=== PATIENT | female | born 1985 | race Caucasian/White ===

== ENCOUNTER 2020-09-21 13:03 | Outpatient (CLI) | payer BC, SELFPAY ==
--- NOTE | 2020-09-21 13:10 | USCV_ITS ---
Shira Parry Age: 34 Gender: F : 1985 Exam Date: 09/21/2020 13:36 Ordering Phys: Ronal Robledo MD ([email or web address]) Technologist: Xavier Zamora Exam Location: [facility] – [place] Indication: VSD BP: 177 / 88 HR: 66 Rhythm: Sinus Technical Quality: Technically difficult study MEASUREMENTS (Male / Female) Normal Values 2D ECHO LV Diastolic Diameter PLAX 4.2 cm 4.2 - 5.9 / 3.9 - 5.3 cm LV Systolic Diameter PLAX 2.8 cm IVS Diastolic Thickness 1.2 cm 0.6 - 1.0 / 0.6 - 0.9 cm IVS Systolic Thickness 1.4 cm LVPW Diastolic Thickness 0.9 cm 0.6 - 1.0 / 0.6 - 0.9 cm LVPW Systolic Thickness 1.3 cm LVOT Diameter 2.0 cm LV Ejection Fraction 2D Teich 61.7 % LV Ejection Fraction MOD 2C 53.5 % LV Ejection Fraction 2C AL 53.2 % LA Diameter 3.2 cm LA Width 4.0 cm LA Height 4.1 cm RA Width 3.7 cm RA Height 4.1 cm Aorta at Sinotubular Diameter 2.2 cm M-MODE LV Diastolic Diameter MM 4.0 cm 4.2 - 5.9 / 3.9 - 5.3 cm LV Systolic Diameter MM 2.2 cm LV Ejection Fraction MM Teich 77.6 % IVS Diastolic Thickness MM 1.1 cm 0.6 - 1.0 / 0.6 - 0.9 cm IVS Systolic Thickness MM 1.6 cm LVPW Diastolic Thickness MM 1.2 cm 0.6 - 1.0 / 0.6 - 0.9 cm LVPW Systolic Thickness MM 1.6 cm RV Diastolic Diameter MM 2.0 cm Aortic Annulus Diameter 2.5 cm LA Ao Ratio MM 1.5 MV E Point Septal Separation 0.9 cm DOPPLER AV Peak Velocity 173.0 cm/s LVOT Peak Velocity 96.0 cm/s AV Area Cont Eq vti 2.4 cm squared AV Area Cont Eq pk 1.8 cm squared MV Area PHT 3.1 cm squared Mitral E to A Ratio 1.1 MV E' Velocity 77.5 cm/s Mitral E to MV E' Ratio 10.8 Mitral E to LV E' Lateral Ratio 10.4 Mitral E to LV E' Septal Ratio 11.2 TR Peak Velocity 146.0 cm/s TR Peak Gradient 8.5 mmHg TV Peak E Velocity 73.0 cm/s Right Atrial Pressure 3.0 mmHg Pulmonary Artery Systolic Pressu 11.5 mmHg PV Peak Velocity 100.0 cm/s FINDINGS Left Ventricle Normal left ventricular size and systolic function, EF 55 %. No gross wall motion abnormalities Right Ventricle Possibly of normal size and ejection fraction Right Atrium The right atrium is normal in size. Left Atrium The left atrium is normal in size. Mitral Valve No gross abnormalities noted Aortic Valve No gross abnormalities noted Tricuspid Valve No gross abnormalities noted Pulmonic Valve Pulmonic valve not well visualized. Pericardium Normal pericardium without effusion. Aorta Normal ascending aorta dimension. CONCLUSIONS Normal left ventricular size and systolic function, EF 55 %. No gross wall motion abnormalities. Possibly normal cardiac chamber sizes. No significant stenotic or regurgitant lesions There is no pericardial effusion. Technically difficult study because of the poor ultrasonic window. Dr Ronal Robledo MD FACC (Electronically Signed) Final Date: 21 September 2020 18:26 S
== END 2020-09-21 13:04 | disposition home or self-care (01) ==
LOC: RAD 13:04
PROVIDERS: Visit Provider Internal Medicine Cardiovascular Disease
DX: Q21.0 Ventricular septal defect (principal)
CPT/HCPCS: 93306

== ENCOUNTER → 2020-10-05 16:08 | Outpatient (BNVA) | payer BC, SELFPAY | PROVIDERS: Visit Provider Internal Medicine Cardiovascular Disease | DX: Z20.822 Contact with and (suspected) exposure to COVID-19 (principal) | CPT/HCPCS: 87635 ==

== ENCOUNTER 2020-10-12 06:27 | Day surgery (SDC) | payer BC, SELFPAY ==
[2020-10-11 14:53] VITALS: BMI 36.6
[2020-10-12 06:46] VITALS: BP 160/85; PULSE 77; RESP 18; TEMP 36.3; O2SAT 97
[2020-10-12] MEDS: sodium chloride 0.9% 1,000 ML 30 ML IV (06:59)
[2020-10-12 07:04] LABS: OR HCG Qualitative Urine Negative (Negative)
--- NOTE | 2020-10-12 07:23 | PM.HP ---
Providers/Chief Complaint Admitting Physician: ALYSE Robledo MD Chief Complaint: Heart murmer History of Present Illness Shira Parry is a 34 year old female with a history of hypertension ventricular septal defect, was found to have a significant murmur in the left sternal border. She had a transthoracic echocardiogram which was a suboptimal quality. No significant stenotic or regurgitant lesions were noted. To better evaluate the heart murmur and the cardiac structures, a transesophageal echocardiogram was recommended. She has a history of a near syncopal episode. No significant arrhythmias were noted. Review of Systems Narrative: CONSTITUTIONAL: No fever or chills. EYES: No blurring of vision or other visual disturbances lately. ENT: No hoarseness of voice, auditory disturbances or sore throat. CARDIOVASCULAR: As mentioned above. RESPIRATORY: No significant cough. GASTROINTESTINAL: No hematemesis or melena. GENITOURINARY: No dysuria or hematuria. INTEGUMENTARY: No skin rashes or history of skin cancer. NEURO: No transient ischemic attacks or amaurosis. PSYCHIATRIC: No history of psychosis or major depression. HEMATOLOGIC: No bleeding disorders or significant anemia. ENDOCRINE: No history of polyuria or polydipsia. MUSCULOSKELETAL: No recent joint pain or swelling. ALLERGY/IMMUNOLOGY: As mentioned above. Medications/Allergies Home Medications Medication Instructions Recorded Confirmed Last Taken Type chlorthalidone 25 mg tablet 25 mg PO QDAY 90 Days #90 tab 07/12/20 10/11/20 10/11/20 Rx potassium chloride 10 mEq 10 meq PO DAILY 90 Days #90 tab 07/12/20 10/11/20 10/11/20 Rx tablet,extended release(part/cryst) Allergies Allergy/AdvReac Type Severity Reaction Status Date / Time codeine Allergy vomitting Verified 10/11/20 15:00 PFSH Acute PFSH: Medical History Elevated blood pressure reading Obesity (BMI 35.0-39.9 without comorbidity) VSD (ventricular septal defect) Patient had surgery for the ventricular septal defect at age of 28 days and then 18 months Surgical History Hx of cholecystectomy Family History Father Hypertension CAD (coronary artery disease) Cancer Mother Hypertension Diabetes Grandmother Hypertension Grandfather Hypertension Social History Smoking and tobacco status: former smoker Alcohol intake: current Alcohol intake frequency: holidays/special occasions only Female Reproductive History: Date of last menstrual period: 10/01/20 Vitals/I&O/Wt Last Vital Signs Temp 97.3 F L 10/12/20 06:46 Pulse 77 10/12/20 06:46 Resp 18 10/12/20 06:46 BP 160/85 10/12/20 06:46 Pulse Ox 97 10/12/20 06:46 Weight last 48 hrs Weight 220 lb Physical Exam Narrative: EXAM NARRATIVE: GENERAL: The patient is alert and oriented times three. Not in any acute distress. HEENT: No significant pallor, icterus or lymphadenopathy.Oral cavity: There are no mucous membrane lesions. NECK: Trachea appears to be central. No masses noted. No JVD or thyromegaly appreciated. RESPIRATORY: Chest is symmetrical. No intercostals muscle retraction or any accessory muscle activation. There is no chest wall tenderness. Breath sounds are heard bilaterally. No rales or rhonchi heard. No evidence of any consolidation. BREASTS: Deferred. HEART: The heart sounds are normal. No S3 or S4. Systolic murmur grade 3/6 the left sternal border. No diastolic murmurs. No pericardial rub ABDOMEN: No vessel pulsations or distention. No tenderness. No organomegaly appreciated. Bowel sounds are normally heard. : Deferred. RECTAL: Deferred. LYMPHATIC: No lymphadenopathy noted in the neck or groin. EXTREMITIES: No edema or cyanosis. No clubbing. Peripheral pulses are palpated in fairly good volume and amplitude MUSCULOSKELETAL: No acute joint deformities or swelling SKIN: There are no significant rashes or ecchymosis NEUROPSYCHIATRIC: The patient is alert and oriented x3. Appears to be in a good mood. No tremors or rigidity noted. A&P Assessment and plan (1) Heart murmur: For further evaluation of the heart murmur and the cardiac structures, a transesophageal echocardiogram was recommended. This was discussed with the patient. The risk of aspiration, bleeding, soft tissue injury, perforation of the stomach/esophagus and other concomitant complications were explained to the patient in detail. The patient understood this well and consented to proceed Status: Acute (2) Obesity (BMI 35.0-39.9 without comorbidity): Status: Acute (3) Elevated blood pressure reading: Since the patient blood pressure seems to be staying in the normal range at home, I may hold off any medication changes at this time. She seems to be somewhat nervous about the test which might be causing the blood pressure elevation. Status: Acute (4) VSD (ventricular septal defect): She had surgery as a baby of 29-year-old and then at 18 months. Apparently the patient was told at that time that she will always have a heart murmur since they could not close the defect completely? Status: Acute Attestations Medical Necessity Statement*: Patient be discharged home after the procedure Coding Level of Care Code Acute Degreasing Solution Mixer for Annel Jaiden Diagnoses Heart murmur R01.1 Obesity (BMI 35.0-39.9 without comorbidity) E66.9 Elevated blood pressure reading R03.0 VSD (ventricular septal defect) Q21.0
--- NOTE | 2020-10-12 07:23 | ANES.PREANE2 ---
Pre-Anesthetic Assessment Pre-Anesthetic Assessment: Height/Weight: Height 1.65 m Weight 99.79 kg Temp Pulse Resp BP Pulse Ox 97.3 F L 77 18 160/85 97 10/12/20 06:46 10/12/20 06:46 10/12/20 06:46 10/12/20 06:46 10/12/20 06:46 Proposed Procedure: Operation Date: 10/12/20 07:30 Proposed Procedures p ROWAN(Not Applicable) - Ronal Robledo MD Was Beta Imtiaz taken within 24 hours: N/A Was Clonidine taken within 24 hours: N/A Last intake: Intake Last Liquid Date 10/11/20 Last Liquid Time 21:00 Last Solid Date 10/11/20 Last Solid Time 21:00 Social: Social History: No alcohol and No tobacco Exam: Pre-Anes Outpt Exam: alert, oriented x 3, clear to auscultation bilaterally and regular rate & rhythm Airway: Submandibular: WNL Cervical ROM: WNL MP: 2 Dentition: Full CV/HEM: CV/HEM: HTN and Murmur Comments: VSD Metabolic: Metabolic: Morbid obesity Anesthetic Plan: ASA status: 2 Anesthesia: MAC Risk of > 500 ml blood loss (7ml/kg in children): No Meds/Allergies Current Medications: Current Medications Generic Name Dose Route Start Last Admin Trade Name Freq PRN Reason Stop Dose Admin Sodium Chloride 1,000 mls @ 30 ml s/hr 10/12/20 06:45 10/12/20 06:59 Sodium Chloride 0.9% IV 10/13/20 06:44 30 mls/hr .Q24H ELIZABETH Administration PFSH Anesthesia PFSH: Medical History Elevated blood pressure reading Obesity (BMI 35.0-39.9 without comorbidity) VSD (ventricular septal defect) Patient had surgery for the ventricular septal defect at age of 28 days and then 18 months Surgical History Hx of cholecystectomy Family History Father Hypertension CAD (coronary artery disease) Cancer Mother Hypertension Diabetes Grandmother Hypertension Grandfather Hypertension Social History Smoking and tobacco status: former smoker Alcohol intake: current Alcohol intake frequency: holidays/special occasions only Female Reproductive History: Date of last menstrual period: 10/01/20 Data Anesthesia Other Labs: Laboratory Results - last 48 hr 10/12/20 06:44 Urine HCG, Qual Negative Cardiac Studies: No Data to Display
--- NOTE | 2020-10-12 07:27 | P.HPUD_ITS ---
Surgery/Procedure H&P Update DATE OF PROCEDURE: October 12, 2020 DATE H&P PERFORMED: 10/12/20 H&P UPDATE INFORMATION: I have reviewed H&P completed within last 30 days, I have examined patient prior to procedure, Changes to prior documentation as noted here and H&P is in [facility] [place] on date indicated PREOP DIAGNOSIS: Striae VSD, heart murmur PLANNED PROCEDURE: Operation Date: 10/12/20 07:30 Proposed Procedures p ROWAN(Not Applicable) - Ronal Robledo MD
--- NOTE | 2020-10-12 08:01 | USCV_ITS ---
Shira Parry Age: 34 Gender: F : 1985 Exam Date: 10/12/2020 08:05 Ordering Phys: Ronal Robledo MD ([email or web address]) Technologist: Xavier Zamora [place] [facility] [place]ication: VSD REPAIR BP: / HR: Rhythm: Sinus Technical Quality: Good MEASUREMENTS (Male / Female) Normal Values 2D ECHO LVOT Diameter 2.0 cm DOPPLER LVOT Peak Velocity 103.0 cm/s Medications Patient given IV sedation by anesthesia service, for details please refer to the anesthesia report. Complications None Proc. Components The ROWAN probe was passed into the posterior pharynx , mid- esophagus, distal esophagus, and gastric fundus. ROWAN was performed at multiple levels. The patient tolerated the procedure well and there were no complications. FINDINGS Left Ventricle Normal LV size and ejection fraction. And deep indentation was noted near to the basal interventricular septum. No evidence of ASD by color-flow Doppler examination or saline contrast injection Right Ventricle The right ventricle is normal in size and function. Right Atrium The right atrium is normal in size. Left Atrium The left atrium is normal in size. LA Appendage Normal contractility. IA Septum Intact with no evidence of any ASD or patent foramen ovale Mitral Valve Trace mitral valve regurgitation. Aortic Valve Mild aortic valve regurgitation. Tricuspid Valve Trace to mild tricuspid valve regurgitation. Pulmonic Valve No gross abnormalities noted Pericardium Normal pericardium without effusion. Aorta Normal ascending aorta dimension. No unstable plaques or any other lesions CONCLUSIONS A deep indentation was noted in the interventricular septum at the basal region, possible site of the VSD repair No evidence of VSD by color flow Doppler examination or by saline contrast injection. Mild aortic regurgitation Trace to mild tricuspid and trace of mitral regurgitation Normal left atrial appendage. No intracardiac masses. Normal chamber sizes with possibly normal LV ejection fraction. Normal aortic dimensions Dr Ronal Robledo MD FAC (Electronically Signed) Final Date: 13 October 2020 19:21 S
[2020-10-12 08:26] VITALS: BP 122/70; PULSE 87; RESP 18; TEMP 36.2; O2SAT 97
[2020-10-12 08:42] VITALS: BP 132/89; PULSE 77; RESP 18; O2SAT 96
--- NOTE | 2020-10-12 08:48 | ANE.PACU2 ---
Inpatient post-anesthesia follow up: Airway intact: Yes Vital signs: Temperature 97.2 F Pulse Rate 77 Respiratory Rate 18 Blood Pressure 132/89 Pulse Oximetry 96 Oxygen Delivery Me thod Room Air Oxygen Flow Rate Fraction of Inspir ed Oxygen Hydration adequate: Yes Nausea and vomiting: No Pain level: 1 Mental status: Baseline
== END 2020-10-12 08:50 | disposition home or self-care (01) ==
PROVIDERS: Anesthesiology; Visit Provider Internal Medicine Cardiovascular Disease
PROC: (CPT 93312; principal; 2020-10-12 07:30)
DX: R01.1 Cardiac murmur, unspecified (principal); E66.01 Morbid (severe) obesity due to excess calories; Z68.36 Body mass index [BMI] 36.0-36.9, adult; R03.0 Elevated blood-pressure reading, without diagnosis of hypertension; Q21.0 Ventricular septal defect; Z82.49 Family history of ischemic heart disease and other diseases of the circulatory system; Z83.3 Family history of diabetes mellitus; Z87.891 Personal history of nicotine dependence
CPT/HCPCS: 81025; 84703; 93312; 93320; 93325; 96360; 96361; J2405; J2704; J3490; J7030

== ENCOUNTER → 2022-01-12 10:59 | Outpatient (BNVA) | payer OTHER, SELFPAY | PROVIDERS: PCP Nurse Practitioner Family; Visit Provider Internal Medicine Cardiovascular Disease | DX: Q21.0 Ventricular septal defect (principal); I35.1 Nonrheumatic aortic (valve) insufficiency; I10 Essential (primary) hypertension; R06.02 Shortness of breath | CPT/HCPCS: 36415; 80048 ==

== ENCOUNTER → 2023-11-04 11:39 | Outpatient (BNVA) | payer OTHER, SELFPAY | PROVIDERS: PCP Nurse Practitioner Family; Visit Provider Registered Nurse Neonatal Intensive Care | DX: J02.9 Acute pharyngitis, unspecified (principal) | CPT/HCPCS: 87880 ==

== ENCOUNTER → 2023-11-15 10:33 | Outpatient (BNVA) | payer OTHER, BC, MEDICAID, SELFPAY | PROVIDERS: PCP Nurse Practitioner Family; Visit Provider Internal Medicine Cardiovascular Disease | DX: Q21.0 Ventricular septal defect (principal); I35.1 Nonrheumatic aortic (valve) insufficiency; R07.9 Chest pain, unspecified; R00.1 Bradycardia, unspecified; I10 Essential (primary) hypertension; E87.6 Hypokalemia; R07.89 Other chest pain | CPT/HCPCS: 93005 ==

== ENCOUNTER → 2024-11-13 10:18 | Outpatient (BNVA) | payer OTHER, SELFPAY | PROVIDERS: PCP Nurse Practitioner Family; Visit Provider Internal Medicine Cardiovascular Disease | DX: R01.1 Cardiac murmur, unspecified (principal); Q21.0 Ventricular septal defect; I35.1 Nonrheumatic aortic (valve) insufficiency; R07.9 Chest pain, unspecified; R94.31 Abnormal electrocardiogram [ECG] [EKG] | CPT/HCPCS: 93005 ==

== ENCOUNTER 2025-01-07 08:50 | Outpatient (CLI) | payer OTHER, SELFPAY ==
--- NOTE | 2025-01-07 08:30 | USCV_ITS ---
Shira Parry Age: 39 Gender: F : 1985 Exam Date: 01/07/2025 09:08 Ordering Phys: Ronal Robledo MD ([email or web address]) Technologist: ANTONIO Exam Location: [facility] [place] Indication: VSD Repair BP: 161 / 86 HR: 69 Rhythm: Sinus Technical Quality: Adequate MEASUREMENTS (Male / Female) Normal Values 2D ECHO LV Diastolic Diameter PLAX 4.0 cm 4.2 - 5.9 / 3.9 - 5.3 cm IVS Diastolic Thickness 1.4 cm 0.6 - 1.0 / 0.6 - 0.9 cm IVS Systolic Thickness 1.9 cm LVPW Diastolic Thickness 1.1 cm 0.6 - 1.0 / 0.6 - 0.9 cm LVPW Systolic Thickness 1.6 cm LVOT Diameter 1.9 cm LV Ejection Fraction 2D Teich 57.6 % LV Ejection Fraction MOD 4C 55.5 % LV Ejection Fraction MOD 2C 57.9 % LV Ejection Fraction 2C AL 58.4 % LA Diameter 3.4 cm RA Systolic Volume 4C AL 58.1 ml RA Systolic Volume 4C MOD 56.4 ml LA Sys Volume AL 64.6 cm cubed LA Sys Volume Index AL 27.9 cm cubed/m squared Aorta at Sinotubular Diameter 2.1 cm IVC Diameter 2.0 cm M-MODE LA Ao Ratio MM 1.5 AV Cusp Separation MM 1.4 cm DOPPLER AV Peak Velocity 113.0 cm/s LVOT Peak Velocity 96.0 cm/s AV Area Cont Eq vti 2.2 cm squared AV Area Cont Eq pk 2.4 cm squared MV Peak Velocity 120.0 cm/s MV Area PHT 3.4 cm squared Mitral E to A Ratio 0.9 TR Peak Velocity 88.0 cm/s TR Peak Gradient 3.1 mmHg PV Peak Velocity 107.0 cm/s FINDINGS Left Ventricle Normal left ventricular size and systolic function, EF 58%. No regional wall motion abnormalities. Right Ventricle Normal right ventricular size and systolic function. Right Atrium normal right atrial size. Left Atrium Normal left atrial size. Mitral Valve No gross abnormalities noted Aortic Valve No gross abnormalities noted Tricuspid Valve No gross abnormalities noted Pulmonic Valve No gross abnormalities noted Pericardium Normal pericardium without effusion. Aorta Normal ascending aorta dimension. IVC Normal inferior vena cava. CONCLUSIONS Normal left ventricular size and systolic function, EF 58%. No regional wall motion abnormalities. Normal cardiac chamber sizes. No gross valvular abnormalities. No signs of intrerventricular shunt No intracardiac masses No pericardial effusion Compared to the study from 09/21/2020, there may not be a significant change Dr Ronal Robledo MD [facility] (Electronically Signed) Final Date: 11 January 2025 20:07 S
== END 2025-01-07 08:51 | disposition home or self-care (01) ==
PROVIDERS: PCP Nurse Practitioner Family; Visit Provider Internal Medicine Cardiovascular Disease
DX: R01.1 Cardiac murmur, unspecified (principal); Q21.0 Ventricular septal defect; I35.1 Nonrheumatic aortic (valve) insufficiency
CPT/HCPCS: 93306